=== PATIENT | female | born 1975 | race Native Hawaiian/Other Pacific Islander ===

== ENCOUNTER 2019-06-15 05:18 | Inpatient (IN) | payer SELFPAY ==
[2019-06-15] MEDS ORDERED: SODIUM CHLORIDE 0.9% 1000 ML 1,000 ML IV ONE (05:26)
--- NOTE | 2019-06-15 05:28 | Event Note ---
ED Screening Note ED Screening Note: Patient is a 44-year-old female who is presenting with weakness in her legs and inability to ambulate. Patient states she was dizzy and bumping into things. Symptoms are starting to improve however she states she still has some residual weakness in her right upper and lower extremity. Patient has presented with similar complaints in the past. No stroke has been initiated since patient states symptoms started at approximately 10 PM which is approximate 7 hours prior to her arrival. Patient is outside the window for TPA at this time This initial assessment/diagnostic orders/clinical plan/treatment(s) is/are subject to change based on patients health status, clinical progression and re-assessment by fellow clinical providers in the ED. Further treatment and workup at subsequent clinical providers discretion. Patient/guardian urged not to elope from the ED as their condition may be serious if not clinically assessed and managed. Initial orders include: Stroke evaluation including CT of the head 0547: Our Tele-neurologist has seen the patient and feels as though the patient is not a candidate for TPA. He does state that there is more weakness in the right arm than the left. Patient admitted that these symptoms have been coming and going throughout the last week. Please see his note. I was recommendation that the patient be admitted to undergo MRI of the head and possibly the spine.
[2019-06-15 05:43] LABS: Basophils # (Auto) 0.1 K/mm3 (0.0-0.1); Basophils % (Auto) 0.6 % (0.0-1.8); Hemoglobin 15.4 gm/dl (10.1-14.3); Lymphocytes # (Auto) 1.2 K/mm3 (1.2-5.4); Lymphocytes % (Auto) 8.3 % (13.4-35.0); Monocytes # (Auto) 0.6 K/mm3 (0.0-0.8); Monocytes % (Auto) 4.6 % (0.0-7.3)
[2019-06-15 05:53] LABS: Hematocrit 46.4 % (30.3-42.9); Mean Corpuscular HGB Conc 34 % (30-34); Mean Corpuscular Volume 90 fl (79-97); Platelet Count 386 K/mm3 (140-440); Red Blood Count 5.15 M/mm3 (3.65-5.03); Red Cell Distribution Width 14.1 % (13.2-15.2)
[2019-06-15 06:00] LABS: INR 0.94 (0.87-1.13)
[2019-06-15 06:01] LABS: Partial Thromboplastin Time 25.8 Sec. (24.2-36.6); Thrombin Time 16.6 Sec. (15.1-19.6)
[2019-06-15 06:06] LABS: Creatine Kinase MB 3.9 ng/mL (0.0-4.0)
[2019-06-15 06:07] LABS: BUN/Creatinine Ratio 20; Blood Urea Nitrogen 12 mg/dL (7-17); Calcium 9.4 mg/dL (8.4-10.2); Hemolysis Index 4
--- NOTE | 2019-06-15 06:07 | Cat Scan Report ---
CT HEAD WITHOUT CONTRAST INDICATION : Stroke symptoms. Weakness in legs with falls. TECHNIQUE: Axial, coronal and sagittal CT imaging was performed from the skull apex through the skul l base without contrast. All CT scans at this location are performed using CT dose reduction for ALA RA by means of automated exposure control. COMPARISON: None available. FINDINGS: PARENCHYMA: No mass, midline shift, hemorrhage, extraaxial collection or acute territorial infarctio n. VENTRICLES: Symmetric and normal in size. SOFT TISSUES: No significant abnormality of the included soft tissues/orbits. BONES: No acute osseous abnormality. SINUSES: No significant abnormality. ADDITIONAL FINDINGS: None. IMPRESSION: No acute intracranial abnormality. COMMUNICATION: Radiologist: Dr. Hinojosa Time of Discovery: 05:00 central standard time Time of Communication: 05:03 central standard time Licensed Practitioner Receiving Report: Dr. iHlliard Read Back Performed: Yes. Signer Name: Phillip Hinojosa MD Signed: 06/15/2019 6:03 AM Workstation Name: [email or web address]
--- NOTE | 2019-06-15 06:09 | Emergency Department Report ---
HPI - General Chief Complaint: Weakness Time Seen by Provider: 06/15/19 05:25 - HPI HPI: [facility] Date of Service: 06/15/2019 05:27:12 Impression: RO Acute Ischemic Stroke Comments: patient with recurrent sxs since last week not iv alteplase candidate with sxs onset greater than 4.5hrs. Low suspicion for LVO disease by clinical exam. CT scan head per my review with small Lacunar stroke b/l frontal region subcortically based and small. Metrics: Last Known Well: 06/14/2019 22:00:00 [facility] Notification Time: 06/15/2019 05:26:42 Arrival Time: 06/15/2019 05:18:00 Stamp Time: 06/15/2019 05:27:12 Time First Login Attempt: 06/15/2019 05:36:00 Video Start Time: 06/15/2019 05:36:00 Symptoms: leg weakness NIHSS Start Assessment Time: 06/15/2019 05:38:00 Patient is not a candidate for tPA. Patient was not deemed candidate for tPA thrombolytics because of Last Well Known Above 4.5 Hours. Video End Time: 06/15/2019 05:43:00 CT head showed no acute hemorrhage or acute core infarct. Presentation is not suggestive of Large Vessel Occlusive disease. Advanced imaging was not obtained as the presentation was not suggestive of Large Vessel Occlusive Disease. ED Physician notified of diagnostic impression and management plan on 06/15/2019 05:43:00 Our recommendations are outlined below. Recommendations: Activate Stroke Protocol Admission/Order Set Stroke/Telemetry Floor Neuro Checks Bedside Swallow Eval DVT Prophylaxis IV Fluids, Normal Saline Head of Bed Below 30 Degrees Euglycemia and Avoid Hyperthermia (PRN Acetaminophen) Antiplatelet Therapy Recommended recommend MRI brain and if negative consider MRI L spine as pt complains of b/l leg weakness Consider NIVS carotid and ECHO if not completed last week. Lipid Panel to Be Obtained, if Not Done in the Last Three Months Therapies: Physical Therapy, Occupational Therapy, Speech Therapy Assessment When Applicable Dysphaghia Screen: Swallow Evaluation, Bedside NPO Until Swallow Evaluation Disposition: If needed consider inpatient Teleneurology Follow up Sign Out: Discussed with Emergency Department Provider History of Present Illness: Patient is a 44 year old Female. Patient was brought by private transportation with symptoms of leg weakness Patient presents with unsteadiness, frequent falls, and b/l leg weakness since and was normal last night. She states similar event last week and she had work up at [facility]. On further questioning she claims sxs have been waxing and waning since last week. She has back pain as well and difficulty coordinating with her arms and legs since last week. She feels like sxs are coming and going with periods of near resolution. She states she wasn't placed on any asa or a/c from recent work up and it is unclear what work up she had done. CT head showed no acute hemorrhage or acute core infarct. Examination: BP(145/96), Pulse(110), 1A: Level of Consciousness - Alert; keenly responsive + 0 1B: Ask Month and Age - Both Questions Right + 0 1C: Blink Eyes & Squeeze Hands - Performs Both Tasks + 0 2: Test Horizontal Extraocular Movements - Normal + 0 3: Test Visual Santamaria - No Visual Loss + 0 4: Test Facial Palsy (Use Grimace if Obtunded) - Normal symmetry + 0 5A: Test Left Arm Motor Drift - Drift, but doesn't hit bed + 1 5B: Test Right Arm Motor Drift - Drift, hits bed + 2 6A: Test Left Leg Motor Drift - No Drift for 5 Seconds + 0 6B: Test Right Leg Motor Drift - No Drift for 5 Seconds + 0 7: Test Limb Ataxia (FNF/Heel-Ibanez) - No Ataxia + 0 8: Test Sensation - Normal; No sensory loss + 0 9: Test Language/Aphasia - Normal; No aphasia + 0 10: Test Dysarthria - Normal + 0 11: Test Extinction/Inattention - No abnormality + 0 NIHSS Score: 3 Patient was informed the Neurology Consult would happen via TeleHealth consult by way of interactive audio and video telecommunications and consented to receiving care in this manner. Due to the immediate potential for life-threatening deterioration due to underlying acute neurologic illness, I spent 35 minutes providing critical care. This time includes time for face to face visit via telemedicine, review of medical records, imaging studies and discussion of findings with providers, the patient and/or family. Dr Kathya Infante [facility] Case [id number] ED Past Medical Hx - Social History Smoking Status: Former Smoker Substance Use Type: None ED Review of Systems ROS: Stated complaint: POSS TIA Other details as noted in HPI Physical Exam - Physical Exam Vital Signs: Vital Signs 06/15/19 05:38 Pulse Rate 110 H Respiratory 11 L Rate Blood Pressure 145/96 [left arm] O2 Sat by Pulse 100 Oximetry ED Course Vital Signs 06/15/19 05:38 Pulse Rate 110 H Respiratory 11 L Rate Blood Pressure 145/96 [left arm] O2 Sat by Pulse 100 Oximetry ED Medical Decision Making - Lab Data Result diagrams: 06/15/19 05:33 06/15/19 05:33 Critical care attestation.: If time is entered above; I have spent that time in minutes in the direct care of this critically ill patient, excluding procedure time. ED Disposition Clinical Impression: Stroke Disposition: - OP ADMIT IP TO THIS HOSP Is pt being admited?: Yes Does the pt Need Aspirin: Yes Condition: Stable
[2019-06-15] MEDS ORDERED: BACITRACIN ZINC OINT 28.4 GM TP PRN (06:19)
--- NOTE | 2019-06-15 06:38 | XRay Report ---
CHEST 1 VIEW 06/15/2019 6:05 AM INDICATION / CLINICAL INFORMATION: suspected CVA. COMPARISON: None available. FINDINGS: SUPPORT DEVICES: None. HEART / MEDIASTINUM: No significant abnormality. LUNGS / PLEURA: No significant pulmonary or pleural abnormality. No pneumothorax. ADDITIONAL FINDINGS: No significant additional findings. IMPRESSION: 1. No acute abnormality of the chest. Signer Name: Phillip Hinojosa MD Signed: 06/15/2019 6:34 AM Workstation Name: [id number]
--- NOTE | 2019-06-15 07:00 | Emergency Department Report ---
ED General Adult HPI - General Chief complaint: Weakness Stated complaint: POSS TIA Time Seen by Provider: 06/15/19 05:25 Source: patient, EMS Mode of arrival: Stretcher Limitations: Physical Limitation - History of Present Illness Initial comments: She presents to emergency department chief complaint of lower extremity weakness. Patient states that she's had bilateral leg weakness that returned last night. Patient states she's had the symptoms off and on for the last 1-2 weeks. Patient states she was seen at [facility] and had a workup and was discharged home from the emergency department. She states at that time they wanted to admit her but the inpatient team, she was not appropriate for admission. Patient complains of having frequent falls and difficulty coordinator arms the last as well. Patient also complains of bilateral blurred vision in the right eye. -: Gradual Severity scale (0 -10): 0 Consistency: intermittent Improves with: none Worsens with: none Associated Symptoms: denies other symptoms Treatments Prior to Arrival: none - Related Data Allergies Allergy/AdvReac Type Severity Reaction Status Date / Time No Known Allergies Allergy Unverified 06/15/19 05:43 ED Review of Systems ROS: Stated complaint: POSS TIA Other details as noted in HPI Constitutional: denies: chills, fever Eyes: denies: eye pain, eye discharge, vision change ENT: denies: ear pain, throat pain Respiratory: denies: cough, shortness of breath, wheezing Cardiovascular: denies: chest pain, palpitations Endocrine: no symptoms reported Gastrointestinal: denies: abdominal pain, nausea, diarrhea Genitourinary: denies: urgency, dysuria, discharge Musculoskeletal: denies: as per HPI, back pain, joint swelling, arthralgia Skin: denies: rash, lesions Neurological: numbness, paresthesias. denies: headache, weakness Psychiatric: denies: anxiety, depression Hematological/Lymphatic: denies: easy bleeding, easy bruising ED Past Medical Hx - Social History Smoking Status: Former Smoker Substance Use Type: None ED Physical Exam - General Limitations: Physical Limitation General appearance: alert, in no apparent distress - Head Head exam: Present: atraumatic, normocephalic - Eye Eye exam: Present: normal appearance, PERRL, EOMI - ENT ENT exam: Present: mucous membranes moist - Neck Neck exam: Present: normal inspection - Respiratory Respiratory exam: Present: normal lung sounds bilaterally. Absent: respiratory distress - Cardiovascular Cardiovascular Exam: Present: normal rhythm, tachycardia. Absent: systolic murmur, diastolic murmur, rubs, gallop - GI/Abdominal GI/Abdominal exam: Present: soft, normal bowel sounds. Absent: distended, tenderness - Extremities Exam Extremities exam: Present: normal inspection - Back Exam Back exam: Present: normal inspection - Neurological Exam Neurological exam: Present: alert, oriented X3, CN II-XII intact - Psychiatric Psychiatric exam: Present: normal affect, normal mood - Skin Skin exam: Present: warm, dry, intact, normal color. Absent: rash ED Course Vital Signs 06/15/19 06/15/19 06/15/19 05:38 06:00 07:00 Pulse Rate 110 H 99 H 95 H Respiratory 11 L 17 18 Rate Blood Pressure 145/96 145/96 150/97 [left arm] O2 Sat by Pulse 100 99 99 Oximetry 06/15/19 06/15/19 06/15/19 07:09 07:16 07:30 Pulse Rate 130 H 92 H Respiratory 11 L 17 15 Rate Blood Pressure [left arm] O2 Sat by Pulse 97 98 Oximetry ED Medical Decision Making - Lab Data Result diagrams: 06/15/19 05:33 06/15/19 05:33 Lab Results 06/15/19 06/15/19 06/15/19 Range/Units 05:33 05:33 05:33 WBC 14.1 H (4.5-11.0) K/mm3 RBC 5.15 H (3.65-5.03) M/mm3 Hgb 15.4 H (10.1-14.3) gm/dl Hct 46.4 H (30.3-42.9) % MCV 90 (79-97) fl MCH 30 (28-32) pg MCHC 34 (30-34) % RDW 14.1 (13.2-15.2) % Plt Count 386 (140-440) K/mm3 Lymph % (Auto) 8.3 L (13.4-35.0) % Newton % (Auto) 4.6 (0.0-7.3) % Eos % (Auto) 0.0 (0.0-4.3) % Baso % (Auto) 0.6 (0.0-1.8) % Lymph # 1.2 (1.2-5.4) K/mm3 Newton # 0.6 (0.0-0.8) K/mm3 Eos # 0.0 (0.0-0.4) K/mm3 Baso # 0.1 (0.0-0.1) K/mm3 Seg Neutrophils % 86.5 H (40.0-70.0) % Seg Neutrophils # 12.2 H (1.8-7.7) K/mm3 PT 12.7 (12.2-14.9) Sec. INR 0.94 (0.87-1.13) APTT 25.8 (24.2-36.6) Sec. Thrombin Time 16.6 (15.1-19.6) Sec. Sodium 135 L (137-145) mmol/L Potassium 3.9 (3.6-5.0) mmol/L Chloride 92.1 L (98-107) mmol/L Carbon Dioxide 21 L (22-30) mmol/L Anion Gap 26 mmol/L BUN 12 (7-17) mg/dL Creatinine 0.6 L (0.7-1.2) mg/dL Estimated GFR > 60 ml/min BUN/Creatinine Ratio 20 % Glucose 373 H (65-100) mg/dL POC Glucose (70-105) Calcium 9.4 (8.4-10.2) mg/dL Total Creatine Kinase 141 H (30-135) units/L CK-MB (CK-2) 3.9 (0.0-4.0) ng/mL CK-MB (CK-2) Rel Index 2.7 (0-4) Troponin T < 0.010 (0.00-0.029) ng/mL 06/15/19 Range/Units 05:36 WBC (4.5-11.0) K/mm3 RBC (3.65-5.03) M/mm3 Hgb (10.1-14.3) gm/dl Hct (30.3-42.9) % MCV (79-97) fl MCH (28-32) pg MCHC (30-34) % RDW (13.2-15.2) % Plt Count (140-440) K/mm3 Lymph % (Auto) (13.4-35.0) % Newton % (Auto) (0.0-7.3) % Eos % (Auto) (0.0-4.3) % Baso % (Auto) (0.0-1.8) % Lymph # (1.2-5.4) K/mm3 Newton # (0.0-0.8) K/mm3 Eos # (0.0-0.4) K/mm3 Baso # (0.0-0.1) K/mm3 Seg Neutrophils % (40.0-70.0) % Seg Neutrophils # (1.8-7.7) K/mm3 PT (12.2-14.9) Sec. INR (0.87-1.13) APTT (24.2-36.6) Sec. Thrombin Time (15.1-19.6) Sec. Sodium (137-145) mmol/L Potassium (3.6-5.0) mmol/L Chloride (98-107) mmol/L Carbon Dioxide (22-30) mmol/L Anion Gap mmol/L BUN (7-17) mg/dL Creatinine (0.7-1.2) mg/dL Estimated GFR ml/min BUN/Creatinine Ratio % Glucose (65-100) mg/dL POC Glucose 356 H (70-105) Calcium (8.4-10.2) mg/dL Total Creatine Kinase (30-135) units/L CK-MB (CK-2) (0.0-4.0) ng/mL CK-MB (CK-2) Rel Index (0-4) Troponin T (0.00-0.029) ng/mL - Radiology Data Radiology results: report reviewed - Medical Decision Making Discussed results with patient Patient will be admitted for further neurological workup and further evaluation of the occlusion of the right heart artery which could be the cause of her symptoms of dizziness, blurred vision, weakness. Critical care attestation.: If time is entered above; I have spent that time in minutes in the direct care of this critically ill patient, excluding procedure time. ED Disposition Clinical Impression: Carotid artery occlusion, Weakness Disposition: [id number] OP ADMIT IP TO THIS HOSP Is pt being admited?: Yes Does the pt Need Aspirin: No Condition: Fair Referrals: LADARIUS GARG MD [Primary Care Provider] - 3-5 Days - Assessment Assessment Interval: Baseline - Level of Consciousness 1a. Level of Consciousness: alert/keenly responsive - LOC Questions 1b. LOC Questions: answers both correctly - LOC Command 1c. LOC Commands: performs tasks correctly - Best Gaze 2. Best Gaze: normal - Visual 3. Visual: no visual loss - Facial Palsy 4. Facial Palsy: normal symmetrical movement - Motor Arm 5a. Motor Arm Left: drift 5b. Motor Arm Right: some gravity effort - Motor Leg 6a. Motor Leg Left: no drift 6b. Motor Leg Right: no drift - Limb Ataxia 7. Limb Ataxia: absent - Sensory 8. Sensory: normal - Best Language 9. Best Language: no aphasia - Dysarthria 10. Dysarthria: normal - Extinction and Inattention 11. Extinction/Inattention: no abnormality - Scoring Total Score: 3 Stroke Severity: Minor Stroke
[2019-06-15] MEDS ORDERED: ASPIRIN 81 MG TAB CHEW PO ONE (08:14)
--- NOTE | 2019-06-15 10:19 | Cat Scan Report ---
CTA NECK WITH CONTRAST HISTORY: Right-sided weakness COMPARISON: None. TECHNIQUE: Routine CTA of the neck was performed. 3-D/MIP reformats were postprocessed. Percentage s tenosis is determined by direct quantitative measurements of diseased internal carotid artery diamete r compared with normal distal internal carotid artery reference segments or by criteria similar to NA SCET where applicable.All CT scans at this location are performed using CT dose reduction for ALARA b y means of automated exposure control CONTRAST: 100 ml of Omnipaque 350 FINDINGS: Aortic arch: No significant abnormality. Cervical vertebral arteries: Origins of both vertebral arteries are stenotic, worse on the left side. Extraosseous, foraminal, extra spinal and intradural segments of vertebral arteries are normal. Common carotid arteries: No significant abnormality. Carotid bifurcations: Right internal carotid artery is occluded at its origin. Wisp of postcontrast could be seen up to 2 cm above the bifurcation. Contrast in the cervical internal carotid artery near the skull base. (Normal string sign) Left carotid bifurcation is normal. Cervical internal carotid arteries: Cervical segment of right internal carotid arteries occluded. Cer vical segment of left internal carotid artery is normal. Additional findings: None. IMPRESSION: 1. Occluded right internal carotid artery at the origin Normal left carotid bifurcation Signer Name: Kali Tompkins MD Signed: 06/15/2019 10:15 AM Workstation Name: [id number]
--- NOTE | 2019-06-15 10:35 | Cat Scan Report ---
CTA HEAD WITH CONTRAST HISTORY: Right-sided weakness COMPARISON: None. TECHNIQUE: Routine non-contrast CT Head, CTA of the head and post-contrast CT Head are performed. 3-D /MIP reformats postprocessed. All CT scans at this location are performed using CT dose reduction for ALARA by means of automated exposure control CONTRAST: 100 ml of Omnipaque 350 FINDINGS: CTA Head: Intracranial vertebral arteries: No significant abnormality. Basilar artery: Focal stenoses (less than 30%) in the mid segment of basilar artery; basilar tip norm al Posterior cerebral arteries: No significant abnormality. Posterior communicating artery communicates with the right posterior cerebral artery Intracranial internal carotid arteries: No flow in the right internal carotid artery from skull base up to the ophthalmic segment: Blood flow in the right ophthalmic artery probably from collateral circ ulation; collateral circulation to right posterior communicating artery and anterior communicating ar dolly opacifying communicating segment of right internal carotid artery and right internal carotid art cliff terminus. Atherosclerotic disease in the petrous segment of left internal carotid artery, left carotid siphon i n the ophthalmic segment. Lumen of the left ophthalmic and communicating segments are patent and very small. Anterior cerebral arteries: No significant abnormality. Middle cerebral arteries: Both middle cerebral arteries are normal Dural venous sinuses:Not optimally opacified. No significant abnormality. Additional findings: None. IMPRESSION: Occluded right internal carotid artery; collateral circulation to right ophthalmic artery, right post erior communicating artery and probably anterior communicating artery Significant atherosclerotic disease in the left internal carotid artery from skull base up communicat ing segment Signer Name: Kali Tompkins MD Signed: 06/15/2019 10:31 AM Workstation Name: [id number]
--- NOTE | 2019-06-15 14:53 | History and Physical Report ---
History of Present Illness Date of examination: 06/15/19 Date of admission: 06/15/19 10:48 Chief complaint: Right sided weakness since last night. History of present illness: 44 y/o female with no sig pmh except for smoking has been having recurrent weakness on Rt side since 1 week.Went to [facility] ED about a week ago and was discharged after being evaluated.Was doing well till yesterday.Last night she noticed more weakness on Rt side and was falling when trying to walk.Because of persistent weakness on Rt side came to ED at 430 am -- 7 hours after persistent occurence of Rt side weakness in RUE and RLE.Falling frequently.No diplopia or nasal regurgitation of symptoms.No dizziness or unsteadiness while walking.Bumping into things because of weakness. Review of Systems ROS: Stated complaint: POSS TIA Other details as noted in HPI Constitutional: denies: chills, fever Eyes: denies: eye pain, eye discharge, vision change ENT: denies: ear pain, throat pain Respiratory: denies: cough, shortness of breath, wheezing Cardiovascular: denies: chest pain, palpitations Endocrine: no symptoms reported Gastrointestinal: denies: abdominal pain, nausea, diarrhea Genitourinary: denies: urgency, dysuria, discharge Musculoskeletal: denies: as per HPI, back pain, joint swelling, arthralgia Skin: denies: rash, lesions Neurological: numbness, paresthesias. denies: headache, weakness Psychiatric: denies: anxiety, depression Hematological/Lymphatic: denies: easy bleeding, easy bruising Past History Past Medical History: hypertension Past Surgical History: No surgical history Social history: lives with family, smoking (1 ppd), full code Family history: no significant family history Medications and Allergies Allergies Allergy/AdvReac Type Severity Reaction Status Date / Time No Known Allergies Allergy Unverified 06/15/19 05:43 Active Meds: Active Medications Bacitracin (Antibiotic Oint) 1 applic TP PRN PRN PRN Reason: knee scrape Exam - Constitutional Vitals: Temp Pulse Resp BP Pulse Ox 98.5 F 101 H 19 132/80 98 06/15/19 11:43 06/15/19 13:32 06/15/19 13:32 06/15/19 13:32 06/15/19 13:32 General appearance: Present: no acute distress, well-nourished - EENT Eyes: Present: PERRL ENT: hearing intact, clear oral mucosa - Neck Neck: Present: supple, normal ROM - Respiratory Respiratory effort: normal Respiratory: bilateral: CTA - Cardiovascular Heart rate: 78 Rhythm: regular Heart Sounds: Present: S1 & S2. Absent: rub, click - Extremities Extremities: pulses symmetrical, No edema Peripheral Pulses: within normal limits - Abdominal General gastrointestinal: Present: soft, non-tender, non-distended, normal bowel sounds Female genitourinary: Present: normal - Rectal Rectal Exam: deferred - Integumentary Integumentary: Present: clear, warm, dry - Musculoskeletal Musculoskeletal: right sided weakness (3+/5 weakness Rt side both upper and lower extremity.) - Psychiatric Psychiatric: appropriate mood/affect, intact judgment & insight - Neurologic Neurologic: CNII-XII intact, focal deficits (RUE and RLE weakness --3+/5 weakness) - Allied Health Allied health notes reviewed: nursing, case management ELIZABETH score - Elizabeth Score Age > 65: (0) No Aspirin use within the Past 7 Days: (0) No 3 or more CAD Risk Factors: (0) No 2 or more Angina events in past 24 hrs: (0) No Known CAD with more than 50% Stenosis: (0) No Elevated Cardiac Markers: (0) No ST Deviation Greater than 0.5mm: (0) No ELIZABETH Score: 0 Results - Labs CBC & Chem 7: 06/15/19 05:33 06/15/19 05:33 Labs: Laboratory Last Values WBC 14.1 K/mm3 (4.5-11.0) H 06/15/19 05:33 RBC 5.15 M/mm3 (3.65-5.03) H 06/15/19 05:33 Hgb 15.4 gm/dl (10.1-14.3) H 06/15/19 05:33 Hct 46.4 % (30.3-42.9) H 06/15/19 05:33 MCV 90 fl (79-97) 06/15/19 05:33 MCH 30 pg (28-32) 06/15/19 05:33 MCHC 34 % (30-34) 06/15/19 05:33 RDW 14.1 % (13.2-15.2) 06/15/19 05:33 Plt Count 386 K/mm3 (140-440) 06/15/19 05:33 Lymph % (Auto) 8.3 % (13.4-35.0) L 06/15/19 05:33 [place] % (Auto) 4.6 % (0.0-7.3) 06/15/19 05:33 Eos % (Auto) 0.0 % (0.0-4.3) 06/15/19 05:33 Baso % (Auto) 0.6 % (0.0-1.8) 06/15/19 05:33 Lymph # 1.2 K/mm3 (1.2-5.4) 06/15/19 05:33 [place] # 0.6 K/mm3 (0.0-0.8) 06/15/19 05:33 Eos # 0.0 K/mm3 (0.0-0.4) 06/15/19 05:33 Baso # 0.1 K/mm3 (0.0-0.1) 06/15/19 05:33 Seg Neutrophils % 86.5 % (40.0-70.0) H 06/15/19 05:33 Seg Neutrophils # 12.2 K/mm3 (1.8-7.7) H 06/15/19 05:33 PT 12.7 Sec. (12.2-14.9) 06/15/19 05:33 INR 0.94 (0.87-1.13) 06/15/19 05:33 APTT 25.8 Sec. (24.2-36.6) 06/15/19 05:33 Thrombin Time 16.6 Sec. (15.1-19.6) 06/15/19 05:33 Sodium 135 mmol/L (137-145) L 06/15/19 05:33 Potassium 3.9 mmol/L (3.6-5.0) 06/15/19 05:33 Chloride 92.1 mmol/L (98-107) L 06/15/19 05:33 Carbon Dioxide 21 mmol/L (22-30) L 06/15/19 05:33 Anion Gap 26 mmol/L 06/15/19 05:33 BUN 12 mg/dL (7-17) 06/15/19 05:33 Creatinine 0.6 mg/dL (0.7-1.2) L 06/15/19 05:33 Estimated GFR > 60 ml/min 06/15/19 05:33 BUN/Creatinine Ratio 20 % 06/15/19 05:33 Glucose 373 mg/dL (65-100) H 06/15/19 05:33 POC Glucose 356 (70-105) H 06/15/19 05:36 Calcium 9.4 mg/dL (8.4-10.2) 06/15/19 05:33 Total Creatine Kinase 141 units/L (30-135) H 06/15/19 05:33 CK-MB (CK-2) 3.9 ng/mL (0.0-4.0) 06/15/19 05:33 CK-MB (CK-2) Rel Index 2.7 (0-4) 06/15/19 05:33 Troponin T < 0.010 ng/mL (0.00-0.029) 06/15/19 05:33 - Imaging and Cardiology EKG: report reviewed Chest x-ray: report reviewed CT Scan - head: report reviewed Imaging and Cardiology: CXR--NAF Head cT--NAF Head CTA Nect CTA----IMPRESSION: Occluded right internal carotid artery; collateral circulation to right ophthalmic artery, right posterior communicating artery and probably anterior communicating artery Significant atherosclerotic disease in the left internal carotid artery from skull base up communicating segment Signer Name: Kali Tompkins MD Signed: 06/15/2019 10:31 AM Workstation Name: [id number] Assessment and Plan Advance Directives: Yes (Full code) VTE prophylaxis?: Chemical Plan of care discussed with patient/family: Yes - Patient Problems (1) Acute CVA (cerebrovascular accident) Current Visit: Yes Status: Acute Plan to address problem: Stroke w/u including MRI /ECHO and CDS Neuro consult Has Rt sided weakness --3/5 power Not a tpa candidate--out of window period--more than 7 hours of persistent weakness. ASA 325 mg po qd started Plavix to be started after vascular surgery consult Neuro consult requested Head CTA and Neck CTA positive for occluded Rt ICA (2) Carotid artery occlusion Current Visit: Yes Status: Acute Qualifiers: Laterality: right Qualified Code(s): I65.21 - Occlusion and stenosis of right carotid artery Plan to address problem: Vascular surgery consult requested (3) T2DM (type 2 diabetes mellitus) Current Visit: Yes Status: Acute Qualifiers: Diabetes mellitus remote computer terminal operator insulin use: without remote computer terminal operator use Plan to address problem: New onset?? Started on Metformin and glimepiride Accucheks and coverage Check A1c Diabetic education (4) Nicotine dependence Current Visit: Yes Status: Chronic Qualifiers: Nicotine product type: cigarettes Plan to address problem: Counselled Started on Nicoderm patch (5) DVT prophylaxis Current Visit: Yes Status: Acute Plan to address problem: On Heparin and GI prophylaxis
[2019-06-15] MEDS ORDERED: MORPHINE 2 MG/1 ML INJ IV PRN (15:00)
[2019-06-15] MEDS ORDERED: ONDANSETRON 4 MG/2 ML INJ IV PRN (15:00)
[2019-06-15] MEDS ORDERED: HYDROmorphone 1 MG/1 ML INJ IV PRN (15:00)
[2019-06-15] MEDS ORDERED: ACETAMINOPHEN 325 MG TAB PO PRN (15:00)
[2019-06-15] MEDS: SODIUM CHLORIDE 0.9% 1000 ML 1,000 ML IV SCH (17:37)
[2019-06-15] MEDS: FAMOTIDINE 20 MG TAB PO SCH ×2 (17:39→22:12)
[2019-06-15] MEDS: INSULIN LISPRO 100 UNIT/ML SUB-Q SCH ×2 (17:53→22:06)
[2019-06-15] MEDS: ASPIRIN 325 MG TAB PO SCH (22:12)
[2019-06-15] MEDS: NICOTINE 14 MG/24 HR PATCH TD SCH (22:12)
[2019-06-15] MEDS: HEPARIN 5,000 UNIT/1 ML VIAL SUB-Q SCH (22:12)
[2019-06-16] MEDS: SODIUM CHLORIDE 0.9% 1000 ML 1,000 ML IV SCH (06:38)
[2019-06-16] MEDS: INSULIN LISPRO 100 UNIT/ML SUB-Q SCH ×4 (07:30→22:47)
[2019-06-16 08:01] LABS: Basophils % (Auto) 0.4 % (0.0-1.8); Eosinophils # (Auto) 0.1 K/mm3 (0.0-0.4); Eosinophils % (Auto) 0.9 % (0.0-4.3); Hematocrit 40.3 % (30.3-42.9); Hemoglobin 13.9 gm/dl (10.1-14.3); Lymphocytes # (Auto) 2.3 K/mm3 (1.2-5.4); Lymphocytes % (Auto) 22.3 % (13.4-35.0); Mean Corpuscular HGB Conc 35 % (30-34); Mean Corpuscular Volume 89 fl (79-97); Monocytes # (Auto) 0.8 K/mm3 (0.0-0.8); Monocytes % (Auto) 8.1 % (0.0-7.3); Platelet Count 334 K/mm3 (140-440); Red Blood Count 4.53 M/mm3 (3.65-5.03); Red Cell Distribution Width 13.9 % (13.2-15.2)
--- NOTE | 2019-06-16 08:20 | Progress Note ---
Assessment and Plan Assessment and plan: Acute CVA. Continue stroke protocol and follow-up MRI, echocardiogram and carotid Dopplers. Neuro consulted. Continue aspirin. Right carotid artery occlusion. CTA head and neck revealed occluded right ICA. Vascular surgery consulted. Diabetes mellitus type 2. ? New onset. Patient started on metformin and glimepiride. Continue Accu-Cheks and sliding scale insulin. Follow-up hemoglobin A1c. Nicotine dependence. Continue NicoDerm patch. History Interval history: She is overnight. Patient still with right-sided weakness. Hospitalist Physical - Constitutional Vitals: Temp Pulse Resp BP Pulse Ox 98.5 F 82 17 146/81 94 06/16/19 05:04 06/16/19 05:04 06/16/19 05:04 06/16/19 05:04 06/16/19 05:04 General appearance: Present: no acute distress, well-nourished - EENT Eyes: Present: PERRL, EOM intact ENT: hearing intact, clear oral mucosa, dentition normal - Neck Neck: Present: supple, normal ROM - Respiratory Respiratory effort: normal Respiratory: bilateral: CTA - Cardiovascular Rhythm: regular Heart Sounds: Present: S1 & S2. Absent: gallop, rub - Extremities Extremities: no ischemia, No edema, Full ROM - Abdominal General gastrointestinal: soft, non-tender, non-distended, normal bowel sounds - Integumentary Integumentary: Present: clear, warm, dry - Neurologic Neurologic: CNII-XII intact, moves all extremities ELIZABETH score - Elizabeth Score Age > 65: (0) No Aspirin use within the Past 7 Days: (0) No 3 or more CAD Risk Factors: (0) No 2 or more Angina events in past 24 hrs: (0) No Known CAD with more than 50% Stenosis: (0) No Elevated Cardiac Markers: (0) No ST Deviation Greater than 0.5mm: (0) No ELIZABETH Score: 0 Results - Labs CBC & Chem 7: 06/16/19 07:20 06/15/19 05:33 Labs: Laboratory Last Values WBC 10.1 K/mm3 (4.5-11.0) 06/16/19 07:20 RBC 4.53 M/mm3 (3.65-5.03) 06/16/19 07:20 Hgb 13.9 gm/dl (10.1-14.3) 06/16/19 07:20 Hct 46.4 % (30.3-42.9) H 06/15/19 05:33 MCV 89 fl (79-97) 06/16/19 07:20 MCH 31 pg (28-32) 06/16/19 07:20 MCHC 35 % (30-34) H 06/16/19 07:20 RDW 13.9 % (13.2-15.2) 06/16/19 07:20 Plt Count 334 K/mm3 (140-440) 06/16/19 07:20 Lymph % (Auto) 22.3 % (13.4-35.0) 06/16/19 07:20 [place] % (Auto) 8.1 % (0.0-7.3) H 06/16/19 07:20 Eos % (Auto) 0.9 % (0.0-4.3) 06/16/19 07:20 Baso % (Auto) 0.4 % (0.0-1.8) 06/16/19 07:20 Lymph # 2.3 K/mm3 (1.2-5.4) 06/16/19 07:20 [place] # 0.8 K/mm3 (0.0-0.8) 06/16/19 07:20 Eos # 0.1 K/mm3 (0.0-0.4) 06/16/19 07:20 Baso # 0.0 K/mm3 (0.0-0.1) 06/16/19 07:20 Seg Neutrophils % 68.3 % (40.0-70.0) 06/16/19 07:20 Seg Neutrophils # 6.9 K/mm3 (1.8-7.7) 06/16/19 07:20 PT 12.7 Sec. (12.2-14.9) 06/15/19 05:33 INR 0.94 (0.87-1.13) 06/15/19 05:33 APTT 25.8 Sec. (24.2-36.6) 06/15/19 05:33 Thrombin Time 16.6 Sec. (15.1-19.6) 06/15/19 05:33 Sodium 135 mmol/L (137-145) L 06/15/19 05:33 Potassium 3.9 mmol/L (3.6-5.0) 06/15/19 05:33 Chloride 92.1 mmol/L (98-107) L 06/15/19 05:33 Carbon Dioxide 21 mmol/L (22-30) L 06/15/19 05:33 Anion Gap 26 mmol/L 06/15/19 05:33 BUN 12 mg/dL (7-17) 06/15/19 05:33 Creatinine 0.6 mg/dL (0.7-1.2) L 06/15/19 05:33 Estimated GFR > 60 ml/min 06/15/19 05:33 BUN/Creatinine Ratio 20 % 06/15/19 05:33 Glucose 373 mg/dL (65-100) H 06/15/19 05:33 POC Glucose 203 (70-105) H 06/16/19 07:58 Hemoglobin A1c 13.1 % (4-6) H 06/16/19 07:20 Calcium 9.4 mg/dL (8.4-10.2) 06/15/19 05:33 Total Creatine Kinase 141 units/L (30-135) H 06/15/19 05:33 CK-MB (CK-2) 3.9 ng/mL (0.0-4.0) 06/15/19 05:33 CK-MB (CK-2) Rel Index 2.7 (0-4) 06/15/19 05:33 Troponin T < 0.010 ng/mL (0.00-0.029) 06/15/19 05:33 Active Medications - Current Medications Current Medications: Generic Name Dose Route Start Last Admin Trade Name Freq PRN Reason Stop Dose Admin Acetaminophen 650 mg 06/15/19 15:00 Tylenol PO Q4H PRN Pain MILD(1-3)/Fever >100.5/ACOSTA Aspirin 325 mg 06/15/19 21:00 06/15/19 22:12 Aspirin PO 325 mg QDAY KEVIN Administration Atorvastatin Calcium 40 mg 06/15/19 22:00 06/15/19 22:12 Lipitor PO 40 mg QHS KEVIN Administration Bacitracin 1 applic 06/15/19 06:19 Antibiotic Oint TP PRN PRN knee scrape Famotidine 20 mg 06/15/19 15:00 06/15/19 22:12 Pepcid PO 20 mg BID KEVIN Administration Glimepiride 2 mg 06/16/19 08:00 Amaryl PO QDDIAB [facility] Heparin Sodium (Porcine) 5,000 unit 06/15/19 22:00 06/15/19 22:12 Heparin SUB-Q 5,000 unit Q12HR KEVIN Administration Hydromorphone HCl 0.5 mg 06/15/19 15:00 Dilaudid IV Q3H PRN Pain , Severe (7-10) Sodium Chloride 1,000 mls @ 75 mls/hr 06/15/19 15:00 06/16/19 06:38 Nacl 0.9% 1000 Ml IV 75 mls/hr DIRECT KEVIN Administration Insulin Human Lispro 0 unit 06/15/19 16:30 06/15/19 22:06 Humalog SUB-Q Not Given ACHS [facility] Protocol Metformin HCl 500 mg 06/16/19 08:00 Glucophage PO BIDDIAB [facility] Morphine Sulfate 2 mg 06/15/19 15:00 Morphine IV Q4H PRN Pain, Moderate (4-6) Nicotine 14 mg 06/15/19 21:00 06/15/19 22:12 Habitrol TD 14 mg QDAY KEVIN Administration Ondansetron HCl 4 mg 06/15/19 15:00 Zofran IV Q8H PRN Nausea And Vomiting Sodium Chloride 10 ml 06/15/19 22:00 06/15/19 23:16 Sodium Chloride Flush Syringe 10 Ml IV 10 ml BID KEVIN Administration Sodium Chloride 10 ml 06/15/19 15:00 Sodium Chloride Flush Syringe 10 Ml IV PRN PRN LINE FLUSH Sodium Chloride 10 ml 06/15/19 20:06 Sodium Chloride Flush Syringe 10 Ml IV PRN PRN LINE FLUSH Sodium Chloride 10 ml 06/15/19 20:18 Sodium Chloride Flush Syringe 10 Ml IV PRN PRN LINE FLUSH
[2019-06-16 08:24] LABS: Alanine Aminotransferase 8 units/L (7-56); BUN/Creatinine Ratio 20; Blood Urea Nitrogen 6 mg/dL (7-17); Calcium 8.7 mg/dL (8.4-10.2); Chol/HDL Ratio 5.54 %; HDL Cholesterol 44 mg/dL (40-59); Hemolysis Index 6; LDL Cholesterol,Direct 189 mg/dL (50-130)
--- NOTE | 2019-06-16 11:27 | Magnetic Resonance Report ---
MRI BRAIN WITHOUT CONTRAST INDICATION / CLINICAL INFORMATION: stroke. Right-sided weakness TECHNIQUE: Multiplanar, multisequence MR images of the brain were obtained. COMPARISON: CTA head and neck on 06/15/2019 FINDINGS: BRAIN / INTRACRANIAL CONTENTS: There are multifocal small acute infarcts in the bilateral frontal hig h convexity cortex extending into the deep white matter. There is also mild involvement of the bilate ral parietal high convexity cortex. There is no associated hemorrhage or adverse mass effect. Ventric ular and cisternal size appears normal for age. CRANIOCERVICAL JUNCTION: No significant abnormality. VASCULAR FLOW-VOIDS: No significant abnormality. ORBITS: No significant abnormality of visualized orbits. SINUSES / MASTOIDS: No significant abnormality of visualized sinuses and mastoid air cells. ADDITIONAL FINDINGS: None. IMPRESSION: 1. Bilateral multifocal small-volume acute infarcts in the bilateral frontoparietal cortex and bilate ral frontal cerebral white matter. Findings could reflect embolic phenomenon as well as possible asso ciated watershed territory infarcts. Signer Name: Nabor Guzman MD Signed: 06/16/2019 11:23 AM Workstation Name: [id number]
[2019-06-16] MEDS: GLIMEPIRIDE 2 MG TAB PO SCH (12:30)
[2019-06-16] MEDS: ASPIRIN 325 MG TAB PO SCH (12:31)
[2019-06-16] MEDS: metFORMIN 500 MG TAB PO SCH ×2 (12:31→17:12)
[2019-06-16] MEDS: FAMOTIDINE 20 MG TAB PO SCH ×2 (12:32→22:47)
[2019-06-16] MEDS: NICOTINE 14 MG/24 HR PATCH TD SCH (12:32)
[2019-06-16] MEDS: HEPARIN 5,000 UNIT/1 ML VIAL SUB-Q SCH ×2 (12:33→22:47)
--- NOTE | 2019-06-16 14:01 | Consultation ---
History of Present Illness Consult date: 06/16/19 Reason for Consult: Right sided weakness Chief complaint: Right sided weakness History of present illness: Patient is a 44-year-old woman with a history of diabetes. She initially began having symptoms on June 08, involving right-sided weakness, as well as weakness of bilateral lower extremities, and falls. Since then, she has had intermittent episodes of slurred speech, and bilateral upper extremity weakness. His symptoms have worsened on the morning of June 15, [facility]. Past History Past Medical History: diabetes, hypertension Past Surgical History: No surgical history Social history: lives with family, smoking (1 ppd), full code Family history: no significant family history Medications and Allergies Allergies Allergy/AdvReac Type Severity Reaction Status Date / Time tomato Allergy Mild Throat Verified 06/16/19 12:54 swolling Active Meds: Active Medications Acetaminophen (Tylenol) 650 mg PO Q4H PRN PRN Reason: Pain MILD(1-3)/Fever >100.5/ACOSTA Aspirin (Aspirin) 325 mg PO QDAY [facility] Last Admin: 06/16/19 12:31 Dose: 325 mg Documented by: Atorvastatin Calcium (Lipitor) 40 mg PO QHS [facility] Last Admin: 06/15/19 22:12 Dose: 40 mg Documented by: Bacitracin (Antibiotic Oint) 1 applic TP PRN PRN PRN Reason: knee scrape Famotidine (Pepcid) 20 mg PO BID [facility] Last Admin: 06/16/19 12:32 Dose: 20 mg Documented by: Glimepiride (Amaryl) 2 mg PO QDDIAB [facility] Last Admin: 06/16/19 12:30 Dose: 2 mg Documented by: Heparin Sodium (Porcine) (Heparin) 5,000 unit SUB-Q Q12HR [facility] Last Admin: 06/16/19 12:33 Dose: 5,000 unit Documented by: Hydromorphone HCl (Dilaudid) 0.5 mg IV Q3H PRN PRN Reason: Pain , Severe (7-10) Sodium Chloride (Nacl 0.9% 1000 Ml) 1,000 mls @ 75 mls/hr IV DIRECT [facility] Last Admin: 06/16/19 06:38 Dose: 75 mls/hr Documented by: Insulin Human Lispro (Humalog) 0 unit SUB-Q ACHS [facility]; Protocol Last Admin: 06/16/19 11:30 Dose: 2 unit Documented by: Metformin HCl (Glucophage) 500 mg PO BIDDIAB [facility] Last Admin: 06/16/19 12:31 Dose: 500 mg Documented by: Morphine Sulfate (Morphine) 2 mg IV Q4H PRN PRN Reason: Pain, Moderate (4-6) Nicotine (Habitrol) 14 mg TD QDAY [facility] Last Admin: 06/16/19 12:32 Dose: 14 mg Documented by: Ondansetron HCl (Zofran) 4 mg IV Q8H PRN PRN Reason: Nausea And Vomiting Sodium Chloride (Sodium Chloride Flush Syringe 10 Ml) 10 ml IV BID [facility] Last Admin: 06/16/19 12:33 Dose: 10 ml Documented by: Sodium Chloride (Sodium Chloride Flush Syringe 10 Ml) 10 ml IV PRN PRN PRN Reason: LINE FLUSH Sodium Chloride (Sodium Chloride Flush Syringe 10 Ml) 10 ml IV PRN PRN PRN Reason: LINE FLUSH Sodium Chloride (Sodium Chloride Flush Syringe 10 Ml) 10 ml IV PRN PRN PRN Reason: LINE FLUSH Review of Systems All systems: negative Neurological: weakness, change in speech Physical Examination - Vital Signs Vital Signs: Vital Signs Pulse Resp BP Pulse Ox 110 H 11 L 145/96 100 06/15/19 05:38 06/15/19 05:38 06/15/19 05:38 06/15/19 05:38 - Physical Exam Narrative exam: Patient is alert, awake, oriented x4, follows complex commands. PERRL, EOMI, VFF, tongue midline, bilaterally intact to LT, no facial weakness noted. RUE 3- /5, RLE 3/5, LUE 4/5, LLE 4/5. Bilaterally intact light touch. Bilaterally intact to FTN and HTS. 2+ reflexes throughout. - Constitutional General appearance: comfortable - EENT EENT: Present: ATNC, PERRL, mucous membranes moist, hearing intact, vision intact - Respiratory Respiratory: Present: lungs clear, normal breath sounds - Cardiovascular Cardiovascular: Present: regular rate, normal S1, normal S2 Extremities: Present: no clubbing, cyanosis, no inflammation - Gastrointestinal Gastrointestinal: Present: normoactive bowel sounds, soft, non-tender - Integumentary Integumentary: Present: normal - Musculoskeletal Musculoskeletal: Present: no fluid collection, no pain - Psychiatric Psychiatric: Present: mood/affect appropriate - Level of Consciousness 1a. Level of Consciousness: alert/keenly responsive - LOC Questions 1b. LOC Questions: answers both correctly - LOC Command 1c. LOC Commands: performs tasks correctly - Best Gaze 2. Best Gaze: normal - Visual 3. Visual: no visual loss - Facial Palsy 4. Facial Palsy: normal symmetrical movement - Motor Arm 5a. Motor Arm Left: no drift 5b. Motor Arm Right: drift - Motor Leg 6a. Motor Leg Left: no drift 6b. Motor Leg Right: drift - Limb Ataxia 7. Limb Ataxia: absent - Sensory 8. Sensory: normal - Best Language 9. Best Language: no aphasia - Dysarthria 10. Dysarthria: normal - Extinction and Inattention 11. Extinction/Inattention: no abnormality - Scoring Total Score: 2 Stroke Severity: Minor Stroke Results - Laboratory Findings CBC and BMP: 06/16/19 07:20 06/16/19 07:20 Abnormal Lab Findings: Abnormal Labs 06/15/19 06/15/19 06/15/19 05:33 05:33 05:36 WBC 14.1 H RBC 5.15 H Hgb 15.4 H Hct 46.4 H MCHC Lymph % (Auto) 8.3 L [place] % (Auto) Seg Neutrophils % 86.5 H Seg Neutrophils # 12.2 H Sodium 135 L Potassium Chloride 92.1 L Carbon Dioxide 21 L BUN Creatinine 0.6 L Glucose 373 H POC Glucose 356 H Hemoglobin A1c Total Creatine Kinase 141 H Total Protein Albumin Cholesterol LDL Cholesterol Direct 06/15/19 06/15/19 06/16/19 16:43 21:39 07:20 WBC RBC Hgb Hct MCHC 35 H Lymph % (Auto) [place] % (Auto) 8.1 H Seg Neutrophils % Seg Neutrophils # Sodium Potassium Chloride Carbon Dioxide BUN Creatinine Glucose POC Glucose 389 H 147 H Hemoglobin A1c Total Creatine Kinase Total Protein Albumin Cholesterol LDL Cholesterol Direct 06/16/19 06/16/19 06/16/19 07:20 07:20 07:58 WBC RBC Hgb Hct MCHC Lymph % (Auto) [place] % (Auto) Seg Neutrophils % Seg Neutrophils # Sodium Potassium 3.2 L Chloride Carbon Dioxide 19 L BUN 6 L Creatinine 0.3 L Glucose 217 H POC Glucose 203 H Hemoglobin A1c 13.1 H Total Creatine Kinase Total Protein 6.2 L Albumin 3.0 L Cholesterol 244 H LDL Cholesterol Direct 189 H 06/16/19 11:50 WBC RBC Hgb Hct MCHC Lymph % (Auto) [place] % (Auto) Seg Neutrophils % Seg Neutrophils # Sodium Potassium Chloride Carbon Dioxide BUN Creatinine Glucose POC Glucose 191 H Hemoglobin A1c Total Creatine Kinase Total Protein Albumin Cholesterol LDL Cholesterol Direct Assessment and Plan Patient is a 44-year-old woman with a history of diabetes, who p/w b/l LE weakness and RUE weakness for 8 days. According the patient's clinical findings, she has had an acute ischemic stroke. Plan: 1. Stroke: - MRI brain: acute infarcts in b/l hemispheres - CTA head/neck: Rt. ICA occlusion - CT head:no acute abnormality - Echo: EF 55-60%, LA normal size, bubble study negative - Check ESMER, as etiology may be cardio-embolic - Cont. ASA - Cont. statin. LDL goal <70 - Telemetry monitoring while in house - PT/OT/ST - DVT Ppx: Recommend lovenox 2. Hypertension: - Recommend SBP goal of 130-150, given Rt. ICA occlusion, as lowering BP too much may result in hypoperfusion. - Will continue to monitor patient. Thank you for allowing me to take part in the care of this patient. Milton Miller MD Neurology
--- NOTE | 2019-06-16 14:52 | Consultation ---
History of Present Illness - Reason for Consult Consult date: 06/16/19 Right ICA occlusion - History of Present Illness HPI: 44-year-old female with a history of non-insulin dependent diabetes kevin barajas hospitalized for acute cerebral vascular accident with symptoms of right-sided extremity weakness. Patient states for approximately 1 week she has had issues with bilateral lower extremity weakness leading to falls, bilateral upper extremity weakness mainly on the right and blurred vision. Patient denies previous stroke. The patient smokes approximately 1/3 pack of cigarettes a day for the past 20 years. The patient had a carotid duplex and neck CTA that demonstrated right-sided ICA occlusion. Patient also had a brain MRI which demonstrated multiple bilateral acute infarcts consistent with embolic disease. Patient denies any family history of DVTs. Review of systems: As per HPI, otherwise negative Physical exam: No acute distress, alert and oriented x3 Regular rate and rhythm Non-labored respirations Facial motor function intact Right upper and lower extremity 4/5 weakness noted, left upper and lower extremity 5/5 strength, sensory grossly intact Carotid duplex reviewed Neck CTA reviewed Plan: 44-year-old female with bilateral hemispheric acute CVA Patient with complete occlusion of the right ICA without reconstitution and mild disease noted in the left ICA No need for surgical intervention Patient findings consistent with cardioembolic source Patient to benefit from ESMER and CTA of the chest Patient also to benefit from therapeutic anticoagulation until source can be identified Patient should undergo hematology evaluation as an outpatient for hypercoagulable work-up if ESMER and CTA of the chest are negative Patient recommended to quit smoking Past History Past Medical History: diabetes, hypertension Past Surgical History: No surgical history Social history: lives with family, smoking (1 ppd), full code Family history: no significant family history Medications and Allergies Allergies Allergy/AdvReac Type Severity Reaction Status Date / Time tomato Allergy Mild Throat Verified 06/16/19 14:39 swelling Active Meds: Active Medications Acetaminophen (Tylenol) 650 mg PO Q4H PRN PRN Reason: Pain MILD(1-3)/Fever >100.5/ACOSTA Aspirin (Aspirin) 325 mg PO QDAY [facility] Last Admin: 06/16/19 12:31 Dose: 325 mg Documented by: Atorvastatin Calcium (Lipitor) 40 mg PO QHS [facility] Last Admin: 06/15/19 22:12 Dose: 40 mg Documented by: Bacitracin (Antibiotic Oint) 1 applic TP PRN PRN PRN Reason: knee scrape Famotidine (Pepcid) 20 mg PO BID [facility] Last Admin: 06/16/19 12:32 Dose: 20 mg Documented by: Glimepiride (Amaryl) 2 mg PO QDDIAB [facility] Last Admin: 06/16/19 12:30 Dose: 2 mg Documented by: Heparin Sodium (Porcine) (Heparin) 5,000 unit SUB-Q Q12HR [facility] Last Admin: 06/16/19 12:33 Dose: 5,000 unit Documented by: Hydromorphone HCl (Dilaudid) 0.5 mg IV Q3H PRN PRN Reason: Pain , Severe (7-10) Sodium Chloride (Nacl 0.9% 1000 Ml) 1,000 mls @ 75 mls/hr IV DIRECT [facility] Last Admin: 06/16/19 06:38 Dose: 75 mls/hr Documented by: Insulin Human Lispro (Humalog) 0 unit SUB-Q ACHS [facility]; Protocol Last Admin: 06/16/19 11:30 Dose: 2 unit Documented by: Metformin HCl (Glucophage) 500 mg PO BIDDIAB [facility] Last Admin: 06/16/19 12:31 Dose: 500 mg Documented by: Morphine Sulfate (Morphine) 2 mg IV Q4H PRN PRN Reason: Pain, Moderate (4-6) Nicotine (Habitrol) 14 mg TD QDAY [facility] Last Admin: 06/16/19 12:32 Dose: 14 mg Documented by: Ondansetron HCl (Zofran) 4 mg IV Q8H PRN PRN Reason: Nausea And Vomiting Sodium Chloride (Sodium Chloride Flush Syringe 10 Ml) 10 ml IV BID [facility] Last Admin: 06/16/19 12:33 Dose: 10 ml Documented by: Sodium Chloride (Sodium Chloride Flush Syringe 10 Ml) 10 ml IV PRN PRN PRN Reason: LINE FLUSH Sodium Chloride (Sodium Chloride Flush Syringe 10 Ml) 10 ml IV PRN PRN PRN Reason: LINE FLUSH Exam - Constitutional Vitals: Temp Pulse Resp BP Pulse Ox 98.7 F 79 20 156/89 96 06/16/19 11:39 06/16/19 11:39 06/16/19 11:39 06/16/19 11:39 06/16/19 11:39 Results - Labs CBC & Chem 7: 06/16/19 07:20 06/16/19 07:20 Labs: Abnormal lab results 06/15/19 06/15/19 06/16/19 Range/Units 16:43 21:39 07:20 MCHC 35 H (30-34) % [place] % (Auto) 8.1 H (0.0-7.3) % Potassium (3.6-5.0) mmol/L Carbon Dioxide (22-30) mmol/L BUN (7-17) mg/dL Creatinine (0.7-1.2) mg/dL Glucose (65-100) mg/dL POC Glucose 389 H 147 H (70-105) Hemoglobin A1c (4-6) % Total Protein (6.3-8.2) g/dL Albumin (3.9-5) g/dL Cholesterol (50-199) mg/dL LDL Cholesterol Direct (50-130) mg/dL 06/16/19 06/16/19 06/16/19 Range/Units 07:20 07:20 07:58 MCHC (30-34) % [place] % (Auto) (0.0-7.3) % Potassium 3.2 L (3.6-5.0) mmol/L Carbon Dioxide 19 L (22-30) mmol/L BUN 6 L (7-17) mg/dL Creatinine 0.3 L (0.7-1.2) mg/dL Glucose 217 H (65-100) mg/dL POC Glucose 203 H (70-105) Hemoglobin A1c 13.1 H (4-6) % Total Protein 6.2 L (6.3-8.2) g/dL Albumin 3.0 L (3.9-5) g/dL Cholesterol 244 H (50-199) mg/dL LDL Cholesterol Direct 189 H (50-130) mg/dL 06/16/19 Range/Units 11:50 MCHC (30-34) % [place] % (Auto) (0.0-7.3) % Potassium (3.6-5.0) mmol/L Carbon Dioxide (22-30) mmol/L BUN (7-17) mg/dL Creatinine (0.7-1.2) mg/dL Glucose (65-100) mg/dL POC Glucose 191 H (70-105) Hemoglobin A1c (4-6) % Total Protein (6.3-8.2) g/dL Albumin (3.9-5) g/dL Cholesterol (50-199) mg/dL LDL Cholesterol Direct (50-130) mg/dL
--- NOTE | 2019-06-16 15:45 | Vascular Lab Report ---
BILATERAL CAROTID DOPPLER HISTORY: Syncope. Stroke. FINDINGS: Duplex Doppler evaluation of the carotid system was performed spectral waveform analysis. A ntegrade vertebral flow is present bilaterally. The right internal carotid artery is occluded. Maximal velocity at the left internal carotid artery is 72 cm/s. Systolic velocity ratio is 0.9. Grayscale imaging demonstrates no flow limiting left-sided stenosis. IMPRESSION: 1. Stenosis less than 50% at the left internal carotid artery per NASCET criteria criteria. 2. Occluded right ICA. Signer Name: Pk Tejada MD Signed: 06/16/2019 3:40 PM Workstation Name: [id number]
[2019-06-17] MEDS: SODIUM CHLORIDE 0.9% 1000 ML 1,000 ML IV SCH ×2 (02:44→16:00)
[2019-06-17] MEDS: INSULIN LISPRO 100 UNIT/ML SUB-Q SCH ×4 (08:35→21:36)
[2019-06-17] MEDS: FAMOTIDINE 20 MG TAB PO SCH ×2 (09:18→21:23)
[2019-06-17] MEDS: metFORMIN 500 MG TAB PO SCH ×2 (09:18→20:51)
[2019-06-17] MEDS: GLIMEPIRIDE 2 MG TAB PO SCH (09:19)
[2019-06-17] MEDS: HEPARIN 5,000 UNIT/1 ML VIAL SUB-Q SCH ×2 (09:19→21:23)
[2019-06-17] MEDS: NICOTINE 14 MG/24 HR PATCH TD SCH (09:19)
[2019-06-17] MEDS: ASPIRIN 325 MG TAB PO SCH (09:19)
--- NOTE | 2019-06-17 14:22 | Progress Note ---
Assessment and Plan Patient is a 44-year-old woman with a history of diabetes, who p/w b/l LE weakness and RUE weakness for 8 days. According the patient's clinical findings, she has had an acute ischemic stroke. Plan: 1. Stroke: - MRI brain: acute infarcts in b/l hemispheres - CTA head/neck: Rt. ICA occlusion - CT head:no acute abnormality - Echo: EF 55-60%, LA normal size, bubble study negative - Check ESMER, as etiology may be cardio-embolic- Pending - Cont. ASA - Cont. statin. LDL goal <70 - Telemetry monitoring while in house - PT/OT/ST - DVT Ppx: Recommend lovenox 2. Hypertension: - Recommend SBP goal of 130-150, given Rt. ICA occlusion, as lowering BP too much may result in hypoperfusion. - Will continue to monitor patient. Thank you for allowing me to take part in the care of this patient. Milton Miller MD Neurology Subjective Date of service: 06/17/19 Principal diagnosis: Stroke Interval history: No acute events overnight. Objective - Exam Narrative Exam: Patient is alert, awake, oriented x4, follows complex commands. PERRL, EOMI, VFF, tongue midline, bilaterally intact to LT, no facial weakness noted. RUE 3/5, RLE 3/5, LUE 4/5, LLE 4/5. Bilaterally intact light touch. Bilaterally intact to FTN and HTS. 2+ reflexes throughout. - Vital Sign Vital Signs - 12hr 06/17/19 06/17/19 06/17/19 04:58 09:24 11:30 Temperature 98.8 F 98.4 F Pulse Rate 75 72 Respiratory 20 18 Rate Blood Pressure 151/82 148/79 O2 Sat by Pulse 96 100 97 Oximetry - General Apperance Constitutional: comfortable - EENT EENT: ATNC, PERRL, mucous membranes moist, hearing intact, vision intact - Respiratory Respiratory: lungs clear, normal breath sounds - Cardiovascular Cardiovascular: regular rate, normal S1, normal S2 Extremities: no clubbing, cyanosis, no inflammation - Gastrointestinal Gastrointestinal: normoactive bowel sounds, soft, non-tender - Integumentary Integumentary: normal - Musculoskeletal Musculoskeletal: no pain, normal range of motion - Psychiatric Psychiatric: mood/affect appropriate - Laboratory Findings CBC and BMP: 06/16/19 07:20 06/16/19 07:20 Abnormal Lab Findings: Abnormal Labs 06/15/19 06/15/19 06/15/19 05:33 05:33 05:36 WBC 14.1 H RBC 5.15 H Hgb 15.4 H Hct 46.4 H MCHC Lymph % (Auto) 8.3 L [place] % (Auto) Seg Neutrophils % 86.5 H Seg Neutrophils # 12.2 H Sodium 135 L Potassium Chloride 92.1 L Carbon Dioxide 21 L BUN Creatinine 0.6 L Glucose 373 H POC Glucose 356 H Hemoglobin A1c Total Creatine Kinase 141 H Total Protein Albumin Cholesterol LDL Cholesterol Direct 06/15/19 06/15/19 06/16/19 16:43 21:39 07:20 WBC RBC Hgb Hct MCHC 35 H Lymph % (Auto) [place] % (Auto) 8.1 H Seg Neutrophils % Seg Neutrophils # Sodium Potassium Chloride Carbon Dioxide BUN Creatinine Glucose POC Glucose 389 H 147 H Hemoglobin A1c Total Creatine Kinase Total Protein Albumin Cholesterol LDL Cholesterol Direct 06/16/19 06/16/19 06/16/19 07:20 07:20 07:58 WBC RBC Hgb Hct MCHC Lymph % (Auto) [place] % (Auto) Seg Neutrophils % Seg Neutrophils # Sodium Potassium 3.2 L Chloride Carbon Dioxide 19 L BUN 6 L Creatinine 0.3 L Glucose 217 H POC Glucose 203 H Hemoglobin A1c 13.1 H Total Creatine Kinase Total Protein 6.2 L Albumin 3.0 L Cholesterol 244 H LDL Cholesterol Direct 189 H 06/16/19 06/16/19 06/16/19 11:50 16:48 22:16 WBC RBC Hgb Hct MCHC Lymph % (Auto) [place] % (Auto) Seg Neutrophils % Seg Neutrophils # Sodium Potassium Chloride Carbon Dioxide BUN Creatinine Glucose POC Glucose 191 H 171 H 155 H Hemoglobin A1c Total Creatine Kinase Total Protein Albumin Cholesterol LDL Cholesterol Direct 06/17/19 06/17/19 08:08 11:38 WBC RBC Hgb Hct MCHC Lymph % (Auto) [place] % (Auto) Seg Neutrophils % Seg Neutrophils # Sodium Potassium Chloride Carbon Dioxide BUN Creatinine Glucose POC Glucose 143 H 333 H Hemoglobin A1c Total Creatine Kinase Total Protein Albumin Cholesterol LDL Cholesterol Direct
--- NOTE | 2019-06-17 16:35 | Progress Note ---
Assessment and Plan Assessment and plan: Acute CVA. Continue stroke protocol. Echocardiogram and carotid Dopplers. Neuro consulted and evaluated her. I discussed with Dr. Miller. For MRA Brain, ESMER Right carotid artery occlusion. CTA head and neck revealed occluded right ICA. Vascular surgery consulted, she was evaluated and medical management recommended I discussed with Dr. Pickett. he recommends CT Chest Diabetes mellitus type 2. ? New onset. Patient started on metformin and glimepiride. Continue Accu-Cheks and sliding scale insulin. Follow-up hemoglobin A1c. Nicotine dependence. Continue NicoDerm patch. History Interval history: Right sided weakness Hospitalist Physical - Physical exam Narrative exam: GEN: Not in acute distress, lying in bed, obese HEENT: Normocephalic, atraumatic, Neck: supple, No JVD Lungs: Clear to auscultation bilat, no wheeze, heart;S1 and S2 reg, no murmurs, rubs or gallop Abd:soft, non tender, non distended, normal bowel sounds Ext: No edema, no clubbing, no cyanosis Neuro: Awake,alert, oriented X 3, right sided weakness - Constitutional Vitals: Temp Pulse Resp BP Pulse Ox 98.4 F 72 18 148/79 97 06/17/19 11:30 06/17/19 11:30 06/17/19 11:30 06/17/19 11:30 06/17/19 11:30 General appearance: Present: no acute distress, obese CAMPBELL score - Campbell Score Age > 65: (0) No Aspirin use within the Past 7 Days: (0) No 3 or more CAD Risk Factors: (0) No 2 or more Angina events in past 24 hrs: (0) No Known CAD with more than 50% Stenosis: (0) No Elevated Cardiac Markers: (0) No ST Deviation Greater than 0.5mm: (0) No CAMPBELL Score: 0 Results - Labs CBC & Chem 7: 06/16/19 07:20 06/16/19 07:20 Labs: Laboratory Last Values WBC 10.1 K/mm3 (4.5-11.0) 06/16/19 07:20 RBC 4.53 M/mm3 (3.65-5.03) 06/16/19 07:20 Hgb 13.9 gm/dl (10.1-14.3) 06/16/19 07:20 Hct 40.3 % (30.3-42.9) D 06/16/19 07:20 MCV 89 fl (79-97) 06/16/19 07:20 MCH 31 pg (28-32) 06/16/19 07:20 MCHC 35 % (30-34) H 06/16/19 07:20 RDW 13.9 % (13.2-15.2) 06/16/19 07:20 Plt Count 334 K/mm3 (140-440) 06/16/19 07:20 Lymph % (Auto) 22.3 % (13.4-35.0) 06/16/19 07:20 [place] % (Auto) 8.1 % (0.0-7.3) H 06/16/19 07:20 Eos % (Auto) 0.9 % (0.0-4.3) 06/16/19 07:20 Baso % (Auto) 0.4 % (0.0-1.8) 06/16/19 07:20 Lymph # 2.3 K/mm3 (1.2-5.4) 06/16/19 07:20 [place] # 0.8 K/mm3 (0.0-0.8) 06/16/19 07:20 Eos # 0.1 K/mm3 (0.0-0.4) 06/16/19 07:20 Baso # 0.0 K/mm3 (0.0-0.1) 06/16/19 07:20 Seg Neutrophils % 68.3 % (40.0-70.0) 06/16/19 07:20 Seg Neutrophils # 6.9 K/mm3 (1.8-7.7) 06/16/19 07:20 PT 12.7 Sec. (12.2-14.9) 06/15/19 05:33 INR 0.94 (0.87-1.13) 06/15/19 05:33 APTT 25.8 Sec. (24.2-36.6) 06/15/19 05:33 Thrombin Time 16.6 Sec. (15.1-19.6) 06/15/19 05:33 Sodium 140 mmol/L (137-145) 06/16/19 07:20 Potassium 3.2 mmol/L (3.6-5.0) L 06/16/19 07:20 Chloride 102.1 mmol/L (98-107) 06/16/19 07:20 Carbon Dioxide 19 mmol/L (22-30) L 06/16/19 07:20 Anion Gap 22 mmol/L 06/16/19 07:20 BUN 6 mg/dL (7-17) L 06/16/19 07:20 Creatinine 0.3 mg/dL (0.7-1.2) L 06/16/19 07:20 Estimated GFR > 60 ml/min 06/16/19 07:20 BUN/Creatinine Ratio 20 % 06/16/19 07:20 Glucose 217 mg/dL (65-100) H 06/16/19 07:20 POC Glucose 333 (70-105) H 06/17/19 11:38 Hemoglobin A1c 13.1 % (4-6) H 06/16/19 07:20 Calcium 8.7 mg/dL (8.4-10.2) 06/16/19 07:20 Total Bilirubin 0.20 mg/dL (0.1-1.2) 06/16/19 07:20 AST 12 units/L (5-40) 06/16/19 07:20 ALT 8 units/L (7-56) 06/16/19 07:20 Alkaline Phosphatase 62 units/L (35-129) 06/16/19 07:20 Total Creatine Kinase 141 units/L (30-135) H 06/15/19 05:33 CK-MB (CK-2) 3.9 ng/mL (0.0-4.0) 06/15/19 05:33 CK-MB (CK-2) Rel Index 2.7 (0-4) 06/15/19 05:33 Troponin T < 0.010 ng/mL (0.00-0.029) 06/15/19 05:33 Total Protein 6.2 g/dL (6.3-8.2) L 06/16/19 07:20 Albumin 3.0 g/dL (3.9-5) L 06/16/19 07:20 Albumin/Globulin Ratio 0.9 % 06/16/19 07:20 Triglycerides 88 mg/dL (2-149) 06/16/19 07:20 Cholesterol 244 mg/dL (50-199) H 06/16/19 07:20 LDL Cholesterol Direct 189 mg/dL (50-130) H 06/16/19 07:20 HDL Cholesterol 44 mg/dL (40-59) 06/16/19 07:20 Cholesterol/HDL Ratio 5.54 % 06/16/19 07:20 Active Medications - Current Medications Current Medications: Generic Name Dose Route Start Last Admin Trade Name Freq PRN Reason Stop Dose Admin Acetaminophen 650 mg 06/15/19 15:00 Tylenol PO Q4H PRN Pain MILD(1-3)/Fever >100.5/ACOSTA Aspirin 325 mg 06/15/19 21:00 06/17/19 09:19 Aspirin PO 325 mg QDAY KEVIN Administration Atorvastatin Calcium 40 mg 06/15/19 22:00 06/16/19 22:47 Lipitor PO 40 mg QHS KEVIN Administration Bacitracin 1 applic 06/15/19 06:19 Antibiotic Oint TP PRN PRN knee scrape Famotidine 20 mg 06/15/19 15:00 06/17/19 09:18 Pepcid PO 20 mg BID KEVIN Administration Glimepiride 2 mg 06/16/19 08:00 06/17/19 09:19 Amaryl PO 2 mg QDDIAB KEVIN Administration Heparin Sodium (Porcine) 5,000 unit 06/15/19 22:00 06/17/19 09:19 Heparin SUB-Q 5,000 unit Q12HR KEVIN Administration Hydromorphone HCl 0.5 mg 06/15/19 15:00 Dilaudid IV Q3H PRN Pain , Severe (7-10) Sodium Chloride 1,000 mls @ 75 mls/hr 06/15/19 15:00 06/17/19 16:00 Nacl 0.9% 1000 Ml IV 75 mls/hr DIRECT KEVIN Administration Insulin Human Lispro 0 unit 06/15/19 16:30 06/17/19 13:57 Humalog SUB-Q 6 unit ACHS KEVIN Administration Protocol Metformin HCl 500 mg 06/16/19 08:00 06/17/19 09:18 Glucophage PO 500 mg BIDDIAB KEVIN Administration Morphine Sulfate 2 mg 06/15/19 15:00 Morphine IV Q4H PRN Pain, Moderate (4-6) Nicotine 14 mg 06/15/19 21:00 06/17/19 09:19 Habitrol TD 14 mg QDAY KEVIN Administration Ondansetron HCl 4 mg 06/15/19 15:00 Zofran IV Q8H PRN Nausea And Vomiting Sodium Chloride 10 ml 06/15/19 22:00 06/17/19 09:20 Sodium Chloride Flush Syringe 10 Ml IV 10 ml BID KEVIN Administration Sodium Chloride 10 ml 06/15/19 15:00 Sodium Chloride Flush Syringe 10 Ml IV PRN PRN LINE FLUSH Sodium Chloride 10 ml 06/15/19 20:18 Sodium Chloride Flush Syringe 10 Ml IV PRN PRN LINE FLUSH Nutrition/Malnutrition Assess - Dietary Evaluation Nutrition/Malnutrition Findings: Nutrition Notes Start: 06/16/19 16:15 Freq: Status: Active Protocol: Document 06/16/19 16:15 CANELO (Rec: 06/16/19 16:26 CANELO [email or web address]) Nutrition Notes Need for Assessment generated from: MD Order,video effects editor,MST, Education Initial or Follow up Assessment Current Diagnosis Diabetes,Hypertension Other Pertinent Diagnosis Carotid artery occlusion, acute CVA Current Diet Regular + Ensure Enlive Labs/Tests K 3.2 A1C 13.1 Total Cholesterol 244 LDL 189 Pertinent Medications Reviewed Height 5 ft 2 in Weight 70.76 kg Usual Body Weight 77.27 kg Fleming Body Weight (kg) 50.00 BMI 28.5 Intake Prior to Admission Poor Weight change and time frame Pt with unintentional 8.4% wt loss in past 6 months Weight Status Overweight Subjective/Other Information RD consulted for DM education and NTR recommendations; pt also screened for malnutrition and skin risks (John score: 19). Receptive to diet education. Says she has never taken insulin before. Burn Absent Trauma Absent Current % PO Poor (25-49%) Minimum of two criteria Yes Energy Intake (non-severe) <75% Estimated Energy Requirement >7 days Interpretation of Weight Loss (non- 7.5% in 3 months severe) Muscle Mass Mild Depletion (non-severe) Protein-Calorie Malnutrition Non-Severe #1 Nutrition Diagnosis Malnutrition Etiology decreased appetite, cardiac issues, uncontrolled BS As Evidenced by Signs and Symptoms poor PO intake, unintentional wt loss, muscle loss Is patient on ventilator? No Is Patient Ambulatory and/or Out of Bed Yes REE-([place]-St. Jeor-ambulatory/OOB) [ 1704.105 [id number]] Calculation Used for Recommendations [place]-St Jeor Additional Notes Pro needs 0.8-1g/k-71g/ day Fluid needs 1ml/kcal Nutrition Intervention Change Diet Order: Change diet to Cardiac/ Consistent CHO Add Supplement/Snack (indicate name/kcal Glucerna BID (strawberry) /protein ) Provides kCal: 440 Provides Protein (gm) 20 Teaching Recipient Patient,Significant Other Learning Readiness Good Teaching Methods Discussion,Handout Response to Teaching Verbalize understanding Education Handouts Provided Heart-Healthy Consistent CHO Nutrition Therapy Hemoglobin A1C and Blood Sugar Control Barriers to Learning No Barriers RD phone number provided Yes Patient aware of follow up options Yes Goal #1 PO intake of meals plus ONS to meet at least 75% energy and pro needs Goal #2 Adhere to CHO-controlled/heart -healthy diet Anticipated Discharge Needs: CHO-controlled/heart-healthy diet Follow-Up By: 06/19/19 Additional Comments F/U: intakes
--- NOTE | 2019-06-17 21:47 | Cat Scan Report ---
CT angio chest INDICATION / CLINICAL INFORMATION: stroke, evaluate large vessels. TECHNIQUE: Axial CT images were obtained after injection of IV contrast using CTA protocol. 3 plane MIP / 3D rec onstructions were produced. All CT scans at this location are performed using CT dose reduction for A EVELIO by means of automated exposure control. COMPARISON: None available. FINDINGS: The lungs contain no suspicious mass, infiltrate or pleural fluid. Negative for mediastinal mass or a denopathy. Imaging of the upper abdomen is unremarkable. Negative for pulmonary embolus, aneurysm or dissection. The wording lesion of the great vessels are n ormal in appearance. IMPRESSION: Negative CTA chest. Signer Name: Pk Tejada MD Signed: 06/17/2019 9:42 PM Workstation Name: [email or web address]
[2019-06-18] MEDS: SODIUM CHLORIDE 0.9% 1000 ML 1,000 ML IV SCH (07:13)
--- NOTE | 2019-06-18 07:40 | Hem/Onc Consultation ---
History of Present Illness - Reason for Consult Consult date: 06/18/19 CVA - hypercoag cause Requesting physician: RENA CASAS - History of Present Illness h/o recurrent weakness on Rt side since 1 week.Went to [facility] ED about a week ago and was discharged after being evaluated. sunday night she noticed more weakness on Rt side and was falling when trying to walk.Because of persistent weakness on Rt side came to ED at 430 am -- 7 hours after persistent occurence of Rt side weakness in RUE and RLE.Falling frequently.No diplopia or nasal regurgitation of symptoms.No dizziness or unsteadiness while walking.Bumping into things because of weakness. seen by neurology b/l LE weakness and RUE weakness for 8 days. According the patient's clinical findings, she has had an acute ischemic stroke. Stroke: - MRI brain: acute infarcts in b/l hemispheres - CTA head/neck: Rt. ICA occlusion - CT head:no acute abnormality - Echo: EF 55-60%, LA normal size, bubble study negative pt was adv ASA ESMER being evaluated Past History Past Medical History: diabetes, hypertension Past Surgical History: No surgical history Social history: lives with family, smoking (1 ppd), full code Family history: no significant family history Medications and Allergies Allergies Allergy/AdvReac Type Severity Reaction Status Date / Time tomato Allergy Mild Throat Verified 06/16/19 14:39 swelling Active Meds: Active Medications Acetaminophen (Tylenol) 650 mg PO Q4H PRN PRN Reason: Pain MILD(1-3)/Fever >100.5/ACOSTA Aspirin (Aspirin) 325 mg PO QDAY [facility] Last Admin: 06/17/19 09:19 Dose: 325 mg Documented by: Atorvastatin Calcium (Lipitor) 40 mg PO QHS [facility] Last Admin: 06/17/19 21:23 Dose: 40 mg Documented by: Bacitracin (Antibiotic Oint) 1 applic TP PRN PRN PRN Reason: knee scrape Famotidine (Pepcid) 20 mg PO BID [facility] Last Admin: 06/17/19 21:23 Dose: 20 mg Documented by: Glimepiride (Amaryl) 2 mg PO QDDIAB [facility] Last Admin: 06/17/19 09:19 Dose: 2 mg Documented by: Heparin Sodium (Porcine) (Heparin) 5,000 unit SUB-Q Q12HR [facility] Last Admin: 06/17/19 21:23 Dose: 5,000 unit Documented by: Hydromorphone HCl (Dilaudid) 0.5 mg IV Q3H PRN PRN Reason: Pain , Severe (7-10) Sodium Chloride (Nacl 0.9% 1000 Ml) 1,000 mls @ 75 mls/hr IV DIRECT [facility] Last Admin: 06/18/19 07:13 Dose: 75 mls/hr Documented by: Insulin Human Lispro (Humalog) 0 unit SUB-Q ACHS [facility]; Protocol Last Admin: 06/17/19 21:36 Dose: 2 unit Documented by: Metformin HCl (Glucophage) 500 mg PO BIDDIAB [facility] Last Admin: 06/17/19 20:51 Dose: Not Given Documented by: Morphine Sulfate (Morphine) 2 mg IV Q4H PRN PRN Reason: Pain, Moderate (4-6) Nicotine (Habitrol) 14 mg TD QDAY [facility] Last Admin: 06/17/19 09:19 Dose: 14 mg Documented by: Ondansetron HCl (Zofran) 4 mg IV Q8H PRN PRN Reason: Nausea And Vomiting Sodium Chloride (Sodium Chloride Flush Syringe 10 Ml) 10 ml IV BID [facility] Last Admin: 06/17/19 21:45 Dose: 10 ml Documented by: Sodium Chloride (Sodium Chloride Flush Syringe 10 Ml) 10 ml IV PRN PRN PRN Reason: LINE FLUSH Sodium Chloride (Sodium Chloride Flush Syringe 10 Ml) 10 ml IV PRN PRN PRN Reason: LINE FLUSH Review of Systems Constitutional: no fever Ears, nose, mouth and throat: no epistaxis Cardiovascular: no chest pain Respiratory: no hemoptysis Gastrointestinal: no abdominal pain Rectal: no bleeding Neurological: parathesias, motor disturbance Hematologic/Lymphatic: no easy bruising, no easy bleeding Exam - Exam Narrative Exam: Vitals were reviewed. No pallor No icterus No neck lymph nodes Heart S1-S2 present Lungs clear to auscultation anteriorly Abdomen soft Leg no edema Female genitalia not examined rt arm weak - Constitutional Vitals: Last Vital Signs Temp 98.4 F 06/18/19 03:58 Pulse 70 06/18/19 03:58 Resp 16 06/18/19 03:58 BP 160/90 06/18/19 03:58 Pulse Ox 97 06/18/19 03:58 Results - Labs lab Results: Laboratory Results - last 24 hr 06/17/19 06/17/19 06/17/19 08:08 11:38 17:19 Potassium POC Glucose 143 H 333 H 122 H 06/17/19 06/18/19 21:34 05:30 Potassium 3.1 L POC Glucose 182 H Assessment and Plan History of CVA seen by neurologist internal carotid artery blockage was found stop Patient was seen by supervisor air conditioning installer ESMER evaluation Will do a lupus anticoagulant and homocystine Labs show white cell count was 14 hemoglobin 15 platelet 386 creatinine was normal bilirubin was normal. Patient aware that she needs to quit smoking. Neurologist has advised aspirin. Diabetes mellitus type 2. ? New onset. Patient was started on metformin and glimepiride. I will follow the patient during inpatient stay will await neurology plans. Thank you - Patient Problems (1) Acute CVA (cerebrovascular accident) Current Visit: Yes Status: Acute
[2019-06-18] MEDS: INSULIN LISPRO 100 UNIT/ML SUB-Q SCH ×3 (08:23→17:29)
[2019-06-18] MEDS: metFORMIN 500 MG TAB PO SCH ×2 (08:48→17:28)
[2019-06-18] MEDS ORDERED: BENZOCAINE 20% TOP SPRAY 0.5 ML UNIT DOSE MM NR (09:00)
[2019-06-18] MEDS: POTASSIUM CHLORIDE 10 MEQ 10 MEQ/100 ML BAG IV SCH ×2 (09:22→10:58)
[2019-06-18] MEDS: NICOTINE 14 MG/24 HR PATCH TD SCH (11:29)
--- NOTE | 2019-06-18 12:13 | Anesthesia Consultation ---
Anesthesia Consult and Med Hx Date of service: 06/18/19 - Airway Anesthetic Teeth Evaluation: Poor (#8 is very loose) ROM Head & Neck: Adequate Mental/Hyoid Distance: Adequate Mallampati Class: Class II Intubation Access Assessment: Probably Good - Pre-Operative Health Status ASA Pre-Surgery Classification: ASA3 Proposed Anesthetic Plan: MAC - Pulmonary Hx Smoking: Yes (1/3 pack/day x 25 years ) Hx Asthma: No COPD: No Hx Pneumonia: No - Central Nervous System CVA: Yes (06/14/19, multiple TIAs, CVAs in the last 2 weeks) - Endocrine Hx End Stage Renal Disease: No Hx Non-Insulin Dependent Diabetes: Yes (non complient) - Other Systems Hx Cancer: No
--- NOTE | 2019-06-18 12:13 | Anesthesia Day of Surgery ---
Anesthesia Day of Surgery - Day of Surgery Patient Examined: Yes Patient H&P Reviewed: Yes Patient is NPO: Yes
[2019-06-18] MEDS ORDERED: propofoL 200 MG/20 ML VIAL IV ONE ×2 (12:16)
[2019-06-18] MEDS ORDERED: SODIUM CHLORIDE 0.9% 500 ML 0 ML ONE (12:16)
[2019-06-18] MEDS ORDERED: BENZOCAINE 20% TOP SPRAY 0.5 ML UNIT DOSE MM ONE ×2 (12:16)
[2019-06-18] MEDS ORDERED: LIDOCAINE MPF (2%) 20 MG/1 ML VIAL 5 ML ONE (12:18)
[2019-06-18] MEDS ORDERED: SODIUM CHLORIDE 0.9% 500 ML 500 ML ONE (12:20)
[2019-06-18] MEDS ORDERED: SODIUM CHLORIDE 0.9% 500 ML 500 ML IV SCH (14:00)
[2019-06-18] MEDS: HEPARIN 5,000 UNIT/1 ML VIAL SUB-Q SCH (14:02)
[2019-06-18] MEDS: ASPIRIN 325 MG TAB PO SCH (14:02)
[2019-06-18] MEDS: FAMOTIDINE 20 MG TAB PO SCH (14:02)
--- NOTE | 2019-06-18 14:45 | Discharge Summary ---
Providers - Providers Date of Admission: 06/16/19 09:17 Date of discharge: 06/18/19 Attending physician: RENA CASAS 06/15/19 15:00 Consult to Physician [CONS] Routine Comment: Consulting Provider: MICHELLE GARCIA Physician Instructions: Reason For Exam: CVA 06/15/19 20:06 Occupational Therapy Evaluate and Treat [CONS] Routine Comment: Reason For Exam: Neuro deficits Physical Therapy Evaluation and Treat [CONS] Routine Comment: Reason For Exam: Neuro deficits 06/16/19 05:23 Consult to Dietitian/Nutrition [CONS] Routine Physician Instructions: Reason For Exam: Diabetes education Reason for Consult: Nutrition Recommendations Reason for Consult: Diet education 06/16/19 11:34 Consult to Physician [CONS] Routine Comment: Consulting Provider: DIANA GOLDBERG Physician Instructions: Reason For Exam: right ICA occlusion 06/17/19 16:35 Consult to Physician [CONS] Routine Comment: Consulting Provider: DORCAS WONG Physician Instructions: Reason For Exam: Stroke. For Hypercoagulability workup Primary care physician: [facility] MD ILEANA Hospitalization Condition: Fair Disposition: DC-01 TO HOME OR SELFCARE Core Measure Documentation - Palliative Care Palliative Care/ Comfort Measures: Not Applicable - Core Measures Any of the following diagnoses?: stroke - Stroke Discharge Requirements Statin for LDL = or >70 mg/dl on DC: Yes Anticoag for atrial fib/atrial flutter: Not Applicable Antithrombotic for ischemic stroke: Yes Exam - Constitutional Vitals: Temp Pulse Resp BP Pulse Ox 98.6 F 71 16 155/84 95 06/18/19 13:54 06/18/19 13:54 06/18/19 13:54 06/18/19 13:54 06/18/19 13:54 Plan Activity: advance as tolerated Diet: low fat, low cholesterol, low salt, diabetic Special Instructions: physical therapy (outpatient) Plan of Treatment: 1.Follow up with PCP or [facility] in 1 week. 2.Follow up with Neurology as outpatienty in 1 week 3.follow up with Dr. Chowdhury, cardiology in 1 week for outpatient eventy monitor Follow up with: LADARIUS GARG MD [Primary Care Provider] - 3-5 Days Prescriptions: glipiZIDE [Glucotrol] 5 mg PO BID #60 tablet Aspirin EC [Halfprin EC] 81 mg PO QDAY #30 tablet AtorvaSTATin [Lipitor] 80 mg PO QHS #60 tablet Clopidogrel [Plavix] 75 mg PO QDAY #30 tablet Other Discharge Orders: Physicial Therapy (Amb) Location: None Selected
--- NOTE | 2019-06-18 14:45 | Post Anesthesia Evaluation ---
- Post Anesthesia Evaluation Patient Participated: Yes Airway Patent: Yes Stable Respiratory Function: Yes Nausea/Vomiting: No Temp > 96.8F: Yes Pain Manageable: Yes Adequeate Hydration: Yes Anesthesia Complications: No Block Receding Appropriately: Not Applicable Patient on Ventilator: No
--- NOTE | 2019-06-18 14:47 | Progress Note ---
Assessment and Plan Patient is a 44-year-old woman with a history of diabetes, who p/w b/l LE weakness and RUE weakness for 8 days. According the patient's clinical findings, she has had an acute ischemic stroke. Plan: 1. Stroke: - MRI brain: acute infarcts in b/l hemispheres - CTA head/neck: Rt. ICA occlusion - CT head:no acute abnormality - Echo: EF 55-60%, LA normal size, bubble study negative -ESMER: No intracardiac thrombi, PFO, or vegetations noted. -Recommend dual antiplatelet therapy with aspirin 81 mg daily and Plavix 75 mg daily for 30 days, after which Plavix can be stopped. Discussed risks and benefits of dual antiplatelet therapy, and patient agreed to start it at this time. Discussed in detail, signs and symptoms of stroke, and if patient is to have any neurologic change, recommended for patient to return to the hospital immediately, given that she has a right ICA occlusion. - Cont. statin. LDL goal <70 - Telemetry monitoring while in house - PT/OT/ST - DVT Ppx: Recommend lovenox -Recommend follow-up with neurology outpatient in 3 to 4 weeks. -As etiology of stroke is cryptogenic, recommend for long-term cardiac monitoring to be done as outpatient with 30-day MCOT or ILR. Recommend cardiology follow-up outpatient for this. 2. Hypertension: - Recommend SBP goal of 130-150, given Rt. ICA occlusion, as lowering BP too much may result in hypoperfusion. - Will sign off, as neurologic investigations are complete, and treatment plan is in place. Please call with any questions. Thank you for allowing me to take part in the care of this patient. Milton Miller MD Neurology Subjective Date of service: 06/18/19 Principal diagnosis: Stroke Interval history: No acute events overnight. Objective - Exam Narrative Exam: Patient is alert, awake, oriented x4, follows complex commands. PERRL, EOMI, VFF, tongue midline, bilaterally intact to LT, no facial weakness noted. RUE 3/5, RLE 3/5, LUE 4/5, LLE 4/5. Bilaterally intact light touch. Bilaterally intact to FTN and HTS. 2+ reflexes throughout. - Vital Sign Vital Signs - 12hr 06/18/19 06/18/19 06/18/19 03:58 12:45 12:48 Temperature 98.4 F Pulse Rate 70 Pulse Rate [ 69 67 Intra-Procedure ] Pulse Rate [ Post-Procedure] Respiratory 16 Rate Respiratory 29 H 16 Rate [Intra- Procedure] Respiratory Rate [Post- Procedure] Blood Pressure 160/90 Blood Pressure 150/85 139/77 [Intra- Procedure] Blood Pressure [Post-Procedure ] O2 Sat by Pulse 97 Oximetry O2 Sat by Pulse 99 98 Oximetry [ Intra-Procedure ] O2 Sat by Pulse Oximetry [Post -Procedure] 06/18/19 06/18/19 06/18/19 12:51 12:54 13:00 Temperature Pulse Rate Pulse Rate [ 80 80 Intra-Procedure ] Pulse Rate [ 72 Post-Procedure] Respiratory Rate Respiratory 24 24 Rate [Intra- Procedure] Respiratory 22 Rate [Post- Procedure] Blood Pressure Blood Pressure 189/90 189/90 [Intra- Procedure] Blood Pressure 136/67 [Post-Procedure ] O2 Sat by Pulse Oximetry O2 Sat by Pulse 94 94 Oximetry [ Intra-Procedure ] O2 Sat by Pulse 95 Oximetry [Post -Procedure] 06/18/19 06/18/19 06/18/19 13:15 13:30 13:54 Temperature 98.6 F Pulse Rate 71 Pulse Rate [ Intra-Procedure ] Pulse Rate [ 68 77 Post-Procedure] Respiratory 16 Rate Respiratory Rate [Intra- Procedure] Respiratory 19 20 Rate [Post- Procedure] Blood Pressure 155/84 Blood Pressure [Intra- Procedure] Blood Pressure 126/71 147/85 [Post-Procedure ] O2 Sat by Pulse 95 Oximetry O2 Sat by Pulse Oximetry [ Intra-Procedure ] O2 Sat by Pulse 99 100 Oximetry [Post -Procedure] - General Apperance Constitutional: comfortable - EENT EENT: ATNC, PERRL, mucous membranes moist, hearing intact, vision intact - Respiratory Respiratory: lungs clear, normal breath sounds - Cardiovascular Cardiovascular: regular rate, normal S1, normal S2 Extremities: no clubbing, cyanosis, no inflammation - Gastrointestinal Gastrointestinal: normoactive bowel sounds, soft, non-tender - Integumentary Integumentary: normal - Musculoskeletal Musculoskeletal: no fluid collection, no pain - Psychiatric Psychiatric: mood/affect appropriate - Laboratory Findings CBC and BMP: 06/16/19 07:20 06/18/19 05:30 Abnormal Lab Findings: Abnormal Labs 06/15/19 06/15/19 06/15/19 05:33 05:33 05:36 WBC 14.1 H RBC 5.15 H Hgb 15.4 H Hct 46.4 H MCHC Lymph % (Auto) 8.3 L [place] % (Auto) Seg Neutrophils % 86.5 H Seg Neutrophils # 12.2 H Sodium 135 L Potassium Chloride 92.1 L Carbon Dioxide 21 L BUN Creatinine 0.6 L Glucose 373 H POC Glucose 356 H Hemoglobin A1c Total Creatine Kinase 141 H Total Protein Albumin Cholesterol LDL Cholesterol Direct 06/15/19 06/15/19 06/16/19 16:43 21:39 07:20 WBC RBC Hgb Hct MCHC 35 H Lymph % (Auto) [place] % (Auto) 8.1 H Seg Neutrophils % Seg Neutrophils # Sodium Potassium Chloride Carbon Dioxide BUN Creatinine Glucose POC Glucose 389 H 147 H Hemoglobin A1c Total Creatine Kinase Total Protein Albumin Cholesterol LDL Cholesterol Direct 06/16/19 06/16/19 06/16/19 07:20 07:20 07:58 WBC RBC Hgb Hct MCHC Lymph % (Auto) [place] % (Auto) Seg Neutrophils % Seg Neutrophils # Sodium Potassium 3.2 L Chloride Carbon Dioxide 19 L BUN 6 L Creatinine 0.3 L Glucose 217 H POC Glucose 203 H Hemoglobin A1c 13.1 H Total Creatine Kinase Total Protein 6.2 L Albumin 3.0 L Cholesterol 244 H LDL Cholesterol Direct 189 H 06/16/19 06/16/19 06/16/19 11:50 16:48 22:16 WBC RBC Hgb Hct MCHC Lymph % (Auto) [place] % (Auto) Seg Neutrophils % Seg Neutrophils # Sodium Potassium Chloride Carbon Dioxide BUN Creatinine Glucose POC Glucose 191 H 171 H 155 H Hemoglobin A1c Total Creatine Kinase Total Protein Albumin Cholesterol LDL Cholesterol Direct 06/17/19 06/17/19 06/17/19 08:08 11:38 17:19 WBC RBC Hgb Hct MCHC Lymph % (Auto) [place] % (Auto) Seg Neutrophils % Seg Neutrophils # Sodium Potassium Chloride Carbon Dioxide BUN Creatinine Glucose POC Glucose 143 H 333 H 122 H Hemoglobin A1c Total Creatine Kinase Total Protein Albumin Cholesterol LDL Cholesterol Direct 06/17/19 06/18/19 06/18/19 21:34 05:30 07:33 WBC RBC Hgb Hct MCHC Lymph % (Auto) [place] % (Auto) Seg Neutrophils % Seg Neutrophils # Sodium Potassium 3.1 L Chloride Carbon Dioxide BUN Creatinine Glucose POC Glucose 182 H 160 H Hemoglobin A1c Total Creatine Kinase Total Protein Albumin Cholesterol LDL Cholesterol Direct 06/18/19 11:43 WBC RBC Hgb Hct MCHC Lymph % (Auto) [place] % (Auto) Seg Neutrophils % Seg Neutrophils # Sodium Potassium Chloride Carbon Dioxide BUN Creatinine Glucose POC Glucose 113 H Hemoglobin A1c Total Creatine Kinase Total Protein Albumin Cholesterol LDL Cholesterol Direct
[2019-06-18] MEDS ORDERED: CLOPIDOGREL 75 MG TAB PO SCH (15:00)
[2019-06-18 17:13] VITALS: BP 158/81
[2019-06-18] MEDS: GLIMEPIRIDE 2 MG TAB PO SCH (17:28)
[2019-06-19] MEDS ORDERED: ASPIRIN EC 81 MG TAB PO SCH (10:00)
== END 2019-06-18 17:57 | disposition home or self-care (01) | DRG 65 ==
LOC: ED 05:18 → 3A 10:48 → OBSVTOIN 06-16 09:17
PROVIDERS: ADMIT Internal Medicine; ATTEND Internal Medicine
DX: I63.9 Cerebral infarction, unspecified (principal); G81.94 Hemiplegia, unspecified affecting left nondominant side; G81.91 Hemiplegia, unspecified affecting right dominant side; I65.21 Occlusion and stenosis of right carotid artery; E11.8 Type 2 diabetes mellitus with unspecified complications; I10 Essential (primary) hypertension; F17.210 Nicotine dependence, cigarettes, uncomplicated; Z71.6 Tobacco abuse counseling
CPT/HCPCS: 36415; 70450; 70496; 70498; 70551; 71045; 71275; 80048; 80053; 80061; 82550; 82553; 82962; 83036; 83516; 84132; 84484; 85025; 85610; 85670; 85730; 93005; 93010; 93306; 93312; 93320; 93325; 93880; 96365; 99406; G0378; A9270-GY; J1644; J1815; J2704; J3480; J7030; J7040; Q9967